=== PATIENT | female | born 1945 | race Caucasian/White ===

== ENCOUNTER 2018-01-28 13:23 | Inpatient (IN) | payer OTHER ==
[2018-01-28] MEDS ORDERED: ALBUTEROL/IPRATROPIUM 1 VIAL SOL INH ONE (13:45)
[2018-01-28] MEDS ORDERED: ALBUTEROL/IPRATROPIUM 1 VIAL SOL ONE (13:56)
[2018-01-28 14:03] LABS: HEMATOCRIT 41 % (35-47); HEMOGLOBIN 12.6 gm/dl (12.0-15.5); MEAN CORPUSCULAR HEMOGLOBIN 26.2 pg (27.0-32.0); MEAN CORPUSCULAR HGB CONC 30.6 gm/dl (32.0-36.0); MEAN CORPUSCULAR VOLUME 86 fL (81-99)
[2018-01-28 14:15] LABS: BLOOD UREA NITROGEN 17 mg/dl (7-18); CALCIUM 9.4 mg/dl (8.5-10.1); CARBON DIOXIDE 37.6 mEq/L (21-32); CREATININE 0.93 mg/dl (0.60-1.00); GLOM FILT RATE 59 mL/min (>60); GLUCOSE 117 mg/dl (74-106); SODIUM 139 mMol/L (136-145); TROP I < 0.017 ng/ml (0.000-0.056)
[2018-01-28 14:16] LABS: CHLORIDE 100 mMol/L (98-107); POTASSIUM 4.5 mMol/L (3.5-5.1)
[2018-01-28] MEDS ORDERED: FUROSEMIDE 40 MG SOL IV ONE (14:25)
[2018-01-28 14:29] LABS: ANISOCYTOSIS SLIGHT; BAND NEUTROPHILS % (MANUAL) 1 %; BASOPHILS % (MANUAL) 0 % (0-3); EOSINOPHILS % (MANUAL) 0 % (0-9); LYMPHOCYTES % (MANUAL) 11 % (10-50); MONOCYTES % (MANUAL) 3 % (0-12); NEUTROPHILS % (MANUAL) 85 % (37-80)
[2018-01-28] MEDS ORDERED: METOLAZONE 2.5 MG TABLET ONE (14:29)
[2018-01-28] MEDS ORDERED: FUROSEMIDE 40 MG SOL ONE (14:32)
[2018-01-28] MEDS: METOLAZONE 2.5 MG TABLET PO SCH (14:36)
[2018-01-28 14:43] LABS: APPEARANCE,URINE Clear; BILIRUBIN,URINE 1+ (NEGATIVE); COLOR,URINE Dark yellow; GLUCOSE, URINE (UA) NEGATIVE (NEGATIVE); KETONES,URINE NEGATIVE (NEGATIVE); LEUKOCYTE ESTERASE ,URINE NEGATIVE (NEGATIVE); NITRATE,URINE POSITIVE (NEGATIVE); OCCULT BLOOD,URINE NEGATIVE (NEG-TRACE); UROBILINOGEN,URINE 0.2 (0.2-1.0 EU)
[2018-01-28 14:51] LABS: BACTERIA 4+ (< 1+); CRYSTALS NEGATIVE (0-3 AVE/HPF); ICTOTEST,URINE NEGATIVE (NEGATIVE); RBC,URINE 0-2 (0-3AV/HPF)
[2018-01-28] MEDS ORDERED: AZITHROMYCIN 500 MG PDS 500 MG in SODIUM CHLORIDE 0.9% 250 ML 250 ML IV ONE (15:34)
[2018-01-28] MEDS ORDERED: CEFTRIAXONE 1 GM PDS 1 GM in SODIUM CHLORIDE 0.9% 50 ML 50 ML IV ONE (15:34)
[2018-01-28] MEDS ORDERED: CEFTRIAXONE 1 GM PDS ONE (15:36)
[2018-01-28] MEDS ORDERED: AZITHROMYCIN 500 MG PDS IV ONE (15:43)
[2018-01-28] MEDS ORDERED: ALBUTEROL NEB SOL 2.5MG/3ML 1 VIAL SOL NEB PRN (16:36)
[2018-01-28] MEDS ORDERED: MICONAZOLE TOP PRN (18:26)
[2018-01-28] MEDS ORDERED: CEFTRIAXONE 1 GM (PREMIX) 1 GM/50 ML SOL IV SCH (18:30)
[2018-01-28] MEDS ORDERED: AZITHROMYCIN 250 MG TAB PO SCH (18:30)
[2018-01-28] MEDS: SODIUM CHLORIDE 0.9% 1000ML 1,000 ML IV SCH (19:03)
[2018-01-28] MEDS: METOCLOPRAMIDE HYDROCHLORIDE 5 MG TAB PO SCH (20:43)
[2018-01-28] MEDS: BIMATOPROST 2.5 ML SOL LEFTEYE SCH (20:46)
[2018-01-28] MEDS ORDERED: DORZOLAMIDE HCL LEFTEYE SCH (21:00)
[2018-01-29] MEDS: SODIUM CHLORIDE 0.9% 1000ML 1,000 ML IV SCH ×2 (05:00→13:53)
[2018-01-29] MEDS ORDERED: OMEPRAZOLE 20 MG CAPSULE PO SCH (07:00)
[2018-01-29 07:12] LABS: BASOPHILS % (AUTO) 0 % (0-3); EOSINOPHILS % (AUTO) 2 % (0-9); HEMATOCRIT 38 % (35-47); HEMOGLOBIN 12.2 gm/dl (12.0-15.5); MEAN CORPUSCULAR HEMOGLOBIN 26.9 pg (27.0-32.0); MEAN CORPUSCULAR HGB CONC 31.9 gm/dl (32.0-36.0); MEAN CORPUSCULAR VOLUME 84 fL (81-99); MONOCYTES % (AUTO) 5.4 % (0-12); NEUTROPHILS % (AUTO) 77.1 % (37-80)
[2018-01-29 07:17] LABS: CALCIUM 8.6 mg/dl (8.5-10.1); CARBON DIOXIDE 34.4 mEq/L (21-32); CREATININE 0.76 mg/dl (0.60-1.00); POTASSIUM 3.6 mMol/L (3.5-5.1)
[2018-01-29] MEDS ORDERED: DIVALPROEX 250 MG TCP PO SCH (09:00)
[2018-01-29] MEDS: ENOXAPARIN 40 MG SOL SC SCH (09:59)
[2018-01-29] MEDS: MAGNESIUM HYDROXIDE 30 ML SUS PO SCH (09:59)
[2018-01-29] MEDS: METOCLOPRAMIDE HYDROCHLORIDE 5 MG TAB PO SCH ×3 (10:00→20:10)
[2018-01-29] MEDS: LISINOPRIL 5 MG TAB PO SCH (10:00)
[2018-01-29] MEDS: METOLAZONE 2.5 MG TABLET PO SCH (10:00)
[2018-01-29] MEDS: PANTOPRAZOLE SODIUM 40 MG ECT PO SCH (10:00)
[2018-01-29] MEDS: MULTIVITAMIN2 1 EA TAB PO SCH (10:00)
[2018-01-29] MEDS: DORZOLAMIDE HCL 2% SOL LEFTEYE SCH ×2 (10:00→20:10)
[2018-01-29] MEDS: DIVALPROEX ECC 125 MG ECC PO SCH (10:31)
[2018-01-29] MEDS ORDERED: SODIUM CHLORIDE 0.9% 50 ML 50 ML IV ONE (14:01)
[2018-01-29] MEDS ORDERED: CEFTRIAXONE 1 GM PDS ONE (14:01)
[2018-01-29] MEDS ORDERED: CEFTRIAXONE 1 GM PDS 1 GM in SODIUM CHLORIDE 0.9% 50 ML 50 ML IV SCH (15:00)
[2018-01-29] MEDS: AZITHROMYCIN 250 MG TAB PO SCH (18:10)
[2018-01-29] MEDS: BIMATOPROST 2.5 ML SOL LEFTEYE SCH (20:10)
[2018-01-30] MEDS: SODIUM CHLORIDE 0.9% 1000ML 1,000 ML IV SCH ×2 (01:38→10:17)
[2018-01-30 07:26] LABS: CALCIUM 8.5 mg/dl (8.5-10.1); CREATININE 0.64 mg/dl (0.60-1.00); POTASSIUM 3.4 mMol/L (3.5-5.1)
[2018-01-30 07:32] LABS: CARBON DIOXIDE 34.2 mEq/L (21-32)
[2018-01-30 07:46] LABS: BASOPHILS % (AUTO) 1 % (0-3); EOSINOPHILS % (AUTO) 2 % (0-9); HEMATOCRIT 42 % (35-47); LYMPHOCYTES % (AUTO) 22.05 % (10-50); MEAN CORPUSCULAR HEMOGLOBIN 26.3 pg (27.0-32.0); MEAN CORPUSCULAR HGB CONC 30.8 gm/dl (32.0-36.0); MEAN CORPUSCULAR VOLUME 85 fL (81-99)
[2018-01-30] MEDS: DIVALPROEX ECC 125 MG ECC PO SCH (08:38)
[2018-01-30] MEDS: METOCLOPRAMIDE HYDROCHLORIDE 5 MG TAB PO SCH (08:39)
[2018-01-30] MEDS: MAGNESIUM HYDROXIDE 30 ML SUS PO SCH (08:39)
[2018-01-30] MEDS: MULTIVITAMIN2 1 EA TAB PO SCH (08:40)
[2018-01-30] MEDS: PANTOPRAZOLE SODIUM 40 MG ECT PO SCH (08:41)
[2018-01-30] MEDS: METOLAZONE 2.5 MG TABLET PO SCH (08:43)
[2018-01-30] MEDS: LISINOPRIL 5 MG TAB PO SCH (08:44)
[2018-01-30] MEDS: DORZOLAMIDE HCL 2% SOL LEFTEYE SCH (08:44)
[2018-01-30] MEDS: ENOXAPARIN 40 MG SOL SC SCH (08:45)
[2018-01-30 09:00] VITALS: BP 140/81; PULSE 64; RESP 16; TEMP 96.7; O2SAT 96
[2018-01-30] MEDS: AZITHROMYCIN 250 MG TAB PO SCH (10:17)
== END 2018-01-30 11:08 | disposition other institution (70) | DRG 194 ==
LOC: ED 13:23 → ACUTE CARE 16:20 → UNDOADMIN 16:20 → ACUTE CARE 16:35
PROVIDERS: ADMIT Family Medicine; ATTEND Family Medicine
DX: J18.9 Pneumonia, unspecified organism (principal); N30.00 Acute cystitis without hematuria; R11.10 Vomiting, unspecified; R06.02 Shortness of breath; G40.909 Epilepsy, unspecified, not intractable, without status epilepticus; E86.0 Dehydration
CPT/HCPCS: 36415; 71045; 80048; 81001; 83880; 84484; 85007; 85025; 85027; 87077; 87088; 87186; 93005; 96365; 96374; 99070; 99283; 99284; J0456; J0696; J1650; J1940; J7613; A9270-GY